=== PATIENT | male | born 1960 | race Caucasian/White ===

== ENCOUNTER 2023-11-19 11:50 | Emergency (ER) | payer BC ==
[~2023-11-19] VITALS: Ht 175.3 cm; Wt 88.6 kg
[~2023-11-19 11:50] MED LIST: PANT-47 PO
[2023-11-19 14:04] LABS: BASOPHILS % (AUTO) 0.4 % (0-1); EOSINOPHILS # (AUTO) 0.2 X10'3 (0-0.9); EOSINOPHILS % (AUTO) 2.5 % (0-6); HEMOGLOBIN 14.7 g/dl (14.0-17.9); LYMPHOCYTES # (AUTO) 1.4 X10'3 (1.1-4.8); LYMPHOCYTES % (AUTO) 17.5 % (21-51); MEAN CORPUSCULAR HEMOGLOBIN 28.6 PG (27.0-31.0); MEAN CORPUSCULAR HGB CONC 33.4 g/dL (33.0-36.5); MEAN CORPUSCULAR VOLUME 85.9 FL (78-98); MEAN PLATELET VOLUME 8.2 FL (7.4-10.4); MONOCYTES # (AUTO) 0.9 X10'3 (0-0.9); MONOCYTES % (AUTO) 12.1 % (2-12); NEUTROPHILS # (AUTO) 5.3 X10'3 (1.8-7.7); NEUTROPHILS % (AUTO) 67.5 % (42-75); PLATELET COUNT 218 X10'3 (140-440); RED BLOOD COUNT 5.12 X10'6 (4.70-6.10); RED CELL DISTRIBUTION WIDTH 13.6 % (11.5-14.5); WHITE BLOOD COUNT 7.8 X10'3 (4.5-11.0)
[2023-11-19 14:29] LABS: ALANINE AMINOTRANSFERASE 34 U/L (12-78); ALBUMIN 3.1 G/DL (3.4-5.0); ALBUMIN/GLOBULIN RATIO 0.8 (1.1-1.5); ALKALINE PHOSPHATASE 62 IU/L (46-116); ANION GAP 9 (8-16); ASPARTATE AMINO TRANSFERASE 39 U/L (10-37); BILIRUBIN,TOTAL 0.7 MG/DL (0.1-1.0); BLOOD UREA NITROGEN 19 MG/DL (7-18); BUN/CREATININE RATIO 24.7 (10.0-20.0); CALCIUM 9.1 MG/DL (8.5-10.1); CHLORIDE 107 MMOL/L (99-107); CREATININE 0.77 MG/DL (0.60-1.10); GLUCOSE 118 MG/DL (70-104); POTASSIUM 3.7 MMOL/L (3.5-5.1); SODIUM 140 MMOL/L (135-145); TOTAL CARBON DIOXIDE 23.8 MMOL/L (24-32); TOTAL PROTEIN 7.2 G/DL (6.4-8.2); eCRCL 99 ML/MIN; eGFR > 90 ML/MIN
[2023-11-19 14:33] LABS: FREE T4 (FREE THYROXINE) 2.44 NG/DL (0.73-1.40); PRO BRAIN NATRIURETIC PEPTIDE 87 PG/ML (0-125)
[2023-11-19 14:41] LABS: APTT 25 SECONDS (22-32); INR 1.1 INR
[2023-11-19 14:45] LABS: THYROID STIMULATING HORMONE < 0.01 ulU/ml (0.34-4.50)
[2023-11-19] MEDS: TETanus/Pertussis (Acell)/Diphther VAC/PF (Tdap-Adult) 0.5ml syringe IMVAC ONE (15:53)
[2023-11-19 16:14] VITALS: BP 130/70; PULSE 72; RESP 20; TEMP 97.8; O2SAT 98
== END 2023-11-19 16:15 | disposition home or self-care (01) ==
LOC: ER 11:51
DX: S02.2XXA Fracture of nasal bones, initial encounter for closed fracture (principal); E04.1 Nontoxic single thyroid nodule; Z79.899 Other long term (current) drug therapy; W18.39XA Other fall on same level, initial encounter; Y93.89 Activity, other specified; Y92.89 Other specified places as the place of occurrence of the external cause; Y99.8 Other external cause status
CPT/HCPCS: 36415; 70450; 71045; 72125; 76536; 80053; 83605; 83880; 84439; 84443; 84484; 85025; 85610; 85730; 87040; 93005; 99285